=== PATIENT | male | born 1985 | race Caucasian/White ===

== ENCOUNTER 2017-09-25 08:58 | Emergency (ER) | payer MEDICAID ==
[~2017-09-25] VITALS: Ht 172.7 cm; Wt 100.0 kg
[2017-09-25 10:23] VITALS: BP 140/73
[2017-09-25] MEDS ORDERED: ACETAMINOPHEN 650MG/20.3ML UDC PO ONE (10:45)
== END 2017-09-25 11:33 | disposition home or self-care (01) ==
LOC: ER 09:25
DX: B34.9 Viral infection, unspecified (principal); R19.7 Diarrhea, unspecified; R11.10 Vomiting, unspecified
CPT/HCPCS: 71045; 87804; 99285

== ENCOUNTER 2017-09-26 18:24 | Emergency (ER) | payer MEDICAID ==
[~2017-09-26] VITALS: Ht 172.7 cm; Wt 100.0 kg
[2017-09-27] MEDS ORDERED: ACETAMINOPHEN 325MG TABLET PO ONE (00:30)
[2017-09-27 01:20] VITALS: BP 123/69
== END 2017-09-27 01:45 | disposition home or self-care (01) ==
LOC: ER 18:35
DX: R05 Cough (principal)
CPT/HCPCS: 71045; 99283

== ENCOUNTER 2018-12-28 17:03 | Emergency (ER) | payer MEDICAID ==
[~2018-12-28] VITALS: Ht 172.7 cm; Wt 95.0 kg
[2018-12-28 19:48] LABS: CLARITY URINE CLEAR (CLEAR); COLOR URINE YELLOW (YELLOW); KETONES URINE NEGATIVE (NEGATIVE); LEUKOCYTE ESTERASE URINE NEGATIVE (NEGATIVE); NITRITE URINE NEGATIVE (NEGATIVE); OCCULT BLOOD URINE TRACE (NEGATIVE); PROTEIN URINE NEGATIVE (NEGATIVE); SPECIFIC GRAVITY URINE 1.026 (1.005-1.030); UROBILINOGEN URINE 0.2 E.U./dL (0.2-1.0)
[2018-12-28 20:48] VITALS: BP 114/61
== END 2018-12-28 20:56 | disposition home or self-care (01) ==
LOC: ER 17:11
DX: M54.5 Low back pain (principal)
CPT/HCPCS: 99283